=== PATIENT | male | born 1955 | race African-American/Black ===

== ENCOUNTER 2019-03-22 23:49 | Inpatient (IN) | payer OTHER ==
[~2019-03-22] VITALS: Ht 162.6 cm; Wt 70.8 kg
[2019-03-23] MEDS ORDERED: SODIUM CHLORIDE 0.9% 1000ML BAG (SEPSIS BOLUS) IV ONE ×2 (05:30→06:15)
[2019-03-23 05:53] LABS: HEMATOCRIT. 42.9 % (42.0-52.0); HEMOGLOBIN. 14.3 g/dL (14.0-18.0); MEAN CORPUSCULAR HEMOGLOBIN 30.9 pg (28.0-32.0); MEAN CORPUSCULAR VOLUME 92.5 fL (80.0-94.0); MEAN PLATELET VOLUME 9.2 fl (7.4-10.4); PLATELET 90 x1000/uL (130-400); RED BLOOD CELL COUNT 4.64 mill/uL (4.7-6.1)
[2019-03-23 06:01] LABS: CHLORIDE 104 mEq/L (98-107)
[2019-03-23 06:07] LABS: INR 1.1; PROTHROMBIN TIME 10.8 sec (9.6-11.0)
[2019-03-23] MEDS ORDERED: ACETAMINOPHEN 325MG TABLET PO STA (06:14)
[2019-03-23] MEDS ORDERED: DEXTROSE 50% WATER 50ML SYRINGE IV ONE (06:30)
[2019-03-23 07:22] LABS: PLATELET ESTIMATE DECREASED
[2019-03-23] MEDS ORDERED: LEVOFLOXACIN 750MG PREMIX 150 ML IV ONE (07:45)
[2019-03-23] MEDS ORDERED: KETOROLAC 30MG/ML VIAL IV ONE (07:45)
[2019-03-23] MEDS ORDERED: CLINDAMYCIN 600 MG in DEXTROSE 5% WATER 50 ML IV ONE (07:45)
[2019-03-23] MEDS ORDERED: IPRATROPIUM/ALBUTEROL 0.5-3(2.5)MG/3ML NEB NEB PRN (10:15)
[2019-03-23] MEDS ORDERED: TRAMADOL 50MG TABLET PO PRN (10:15)
[2019-03-23] MEDS ORDERED: DOCUSATE SODIUM 100MG CAPSULE PO PRN (10:15)
[2019-03-23] MEDS ORDERED: LORAZEPAM 0.5MG TABLET PO PRN (10:15)
[2019-03-23] MEDS ORDERED: ONDANSETRON HCL 4MG/2ML INJ IV PRN (10:15)
[2019-03-23] MEDS ORDERED: POTASSIUM CHLORIDE 20MEQ TABLET SR PO NR (10:15)
[2019-03-23] MEDS ORDERED: CLONIDINE 0.1MG TABLET PO PRN (10:15)
[2019-03-23] MEDS ORDERED: MAGNESIUM/ALUMINUM HYDROXIDE/SIMETHICONE 30ML UDC PO PRN (10:15)
[2019-03-23] MEDS ORDERED: CEFAZOLIN 1000MG PREMIX 50 ML IV SCH (14:00)
[2019-03-23] MEDS: GUAIFENESIN 200MG/10ML SUGAR FREE UDC PO PRN (14:41)
[2019-03-23 18:18] LABS: CLARITY URINE TURBID (CLEAR); COLOR URINE DARK YELLOW (YELLOW); KETONES URINE TRACE (NEGATIVE); LEUKOCYTE ESTERASE URINE NEGATIVE (NEGATIVE); NITRITE URINE NEGATIVE (NEGATIVE); OCCULT BLOOD URINE NEGATIVE (NEGATIVE); PROTEIN URINE TRACE (NEGATIVE); SPECIFIC GRAVITY URINE 1.028 (1.005-1.030)
[2019-03-23 18:35] LABS: *AMPHETAMINES SCREEN URINE NEGATIVE (NEGATIVE); *BARBITURATES SCREEN URINE NEGATIVE (NEGATIVE); *BENZODIAZEPINES SCREEN URINE NEGATIVE (NEGATIVE); *COCAINE SCREEN URINE NEGATIVE (NEGATIVE); METHADONE URINE SCREEN NEGATIVE (NEGATIVE); OPIATES URINE SCREEN PRESUMTIVE POSITIVE (NEGATIVE)
[2019-03-23 18:36] LABS: CANNABINOID URINE SCREEN PRESUMTIVE POSITIVE (NEGATIVE); PHENCYCLIDINE URINE SCREEN NEGATIVE (NEGATIVE)
[2019-03-23 18:50] VITALS: BP 156/96
[2019-03-23 20:00] VITALS: BP 169/78
[2019-03-23] MEDS: ACETAMINOPHEN 325MG TABLET PO PRN (20:11)
[2019-03-23] MEDS: FUROSEMIDE 40MG/4ML VIAL IVP SCH (20:30)
[2019-03-23] MEDS: SPIRONOLACTONE 25MG TABLET PO SCH (20:30)
[2019-03-23] MEDS: ASCORBIC ACID 500 MG TABLET PO SCH (20:30)
[2019-03-23] MEDS: ENOXAPARIN 40MG/0.4ML SYR SUBCUT SCH (20:37)
[2019-03-23] MEDS: IPRATROPIUM/ALBUTEROL 0.5-3(2.5)MG/3ML NEB HHN SCH (20:53)
[2019-03-23] MEDS ORDERED: MAGNESIUM 2 G PREMIX 50 ML IV NR (21:00)
[2019-03-23 21:31] LABS: CREATINE KINASE MB FRACTION 3.8 ng/mL (0.5-3.6)
[2019-03-23 22:00] VITALS: BP 158/74
[2019-03-24] VITALS (11 sets, daily range): BP systolic 109–166; BP diastolic 64–87
[2019-03-24] MEDS: IPRATROPIUM/ALBUTEROL 0.5-3(2.5)MG/3ML NEB HHN SCH ×6 (00:26→20:59)
[2019-03-24] MEDS: ACETAMINOPHEN 325MG TABLET PO PRN ×2 (00:32→09:23)
[2019-03-24] MEDS ORDERED: HYDR10SY15 PO (03:42)
[2019-03-24] MEDS ORDERED: AMIO100T4 PO (03:42)
[2019-03-24] MEDS ORDERED: ASPI-1393 PO (03:42)
[2019-03-24] MEDS ORDERED: SACU1TAB MT (03:42)
[2019-03-24] MEDS ORDERED: ETOD400T2 MT (03:42)
[2019-03-24] MEDS ORDERED: ATOR-2 PO (03:42)
[2019-03-24] MEDS ORDERED: MINE50OI TP (03:42)
[2019-03-24] MEDS ORDERED: CARV25TA47 MT (03:42)
[2019-03-24] MEDS: ZOLPIDEM TARTRATE 5MG TABLET PO PRN (05:20)
[2019-03-24] MEDS: FUROSEMIDE 40MG/4ML VIAL IVP SCH ×2 (05:39→18:13)
[2019-03-24] MEDS ORDERED: CLINDAMYCIN 900 MG in DEXTROSE 5% WATER 50 ML IV SCH (08:30)
[2019-03-24] MEDS ORDERED: CEFTRIAXONE 1 G PREMIX 50 ML IV SCH (09:00)
[2019-03-24] MEDS ORDERED: LEVOFLOXACIN 250MG PREMIX 50 ML IV SCH (09:00)
[2019-03-24] MEDS: FAMOTIDINE 20MG TABLET PO SCH (09:21)
[2019-03-24] MEDS: DILTIAZEM HCL 60MG TABLET PO SCH ×3 (09:21→22:52)
[2019-03-24] MEDS: SPIRONOLACTONE 25MG TABLET PO SCH ×2 (09:21→21:58)
[2019-03-24] MEDS: ASCORBIC ACID 500 MG TABLET PO SCH ×2 (09:21→21:58)
[2019-03-24] MEDS: AMLODIPINE 10MG TABLET PO SCH (09:22)
[2019-03-24] MEDS: ZINC SULFATE 220 MG ( 50 ) CAPSULE PO SCH (09:23)
[2019-03-24] MEDS ORDERED: CLINDAMYCIN 900 MG PREMIX 50 ML IV SCH ×2 (10:00→15:30)
[2019-03-24 11:07] LABS: HEMATOCRIT. 41.8 % (42.0-52.0); MEAN CORPUSCULAR HEMOGLOBIN 31.3 pg (28.0-32.0); MEAN CORPUSCULAR VOLUME 93.4 fL (80.0-94.0); MEAN PLATELET VOLUME 9.5 fl (7.4-10.4); PLATELET 103 x1000/uL (130-400); RED BLOOD CELL COUNT 4.48 mill/uL (4.7-6.1); RED CELL DISTRIBUTION WIDTH 14.2 % (11.6-14.6)
[2019-03-24 11:10] LABS: CHLORIDE 107 mEq/L (98-107)
[2019-03-24 11:26] LABS: CREATINE KINASE 265 IU/L (39-308)
[2019-03-24 11:28] LABS: CREATINE KINASE MB FRACTION 1.9 ng/mL (0.5-3.6)
[2019-03-24] MEDS ORDERED: DIPHENHYDRAMINE 50MG CAPSULE PO PRN (15:30)
[2019-03-24 17:00] LABS: PLATELET ESTIMATE DECREASED
[2019-03-24] MEDS: METHYLPREDNISOLONE SOD SUCC 125 MG/2 ML VIAL IV SCH (18:13)
[2019-03-24] MEDS: CLINDAMYCIN 900 MG in DEXTROSE 5% WATER 50 ML IV SCH (18:22)
[2019-03-24] MEDS: ENOXAPARIN 40MG/0.4ML SYR SUBCUT SCH (21:00)
[2019-03-25] VITALS (12 sets, daily range): BP systolic 103–141; BP diastolic 57–83
[2019-03-25] MEDS: ZOLPIDEM TARTRATE 5MG TABLET PO PRN ×2 (01:38→22:28)
[2019-03-25] MEDS: METHYLPREDNISOLONE SOD SUCC 125 MG/2 ML VIAL IV SCH ×3 (01:38→22:05)
[2019-03-25] MEDS: CLINDAMYCIN 900 MG in DEXTROSE 5% WATER 50 ML IV SCH ×3 (01:39→17:55)
[2019-03-25] MEDS: IPRATROPIUM/ALBUTEROL 0.5-3(2.5)MG/3ML NEB HHN SCH ×5 (01:40→21:20)
[2019-03-25] MEDS: DILTIAZEM HCL 60MG TABLET PO SCH ×3 (06:00→22:06)
[2019-03-25] MEDS: FUROSEMIDE 40MG/4ML VIAL IVP SCH ×2 (06:14→17:55)
[2019-03-25 07:25] LABS: CHLORIDE 104 mEq/L (98-107)
[2019-03-25 07:33] LABS: PHOSPHORUS 4.3 mg/dL (2.5-4.9)
[2019-03-25] MEDS: SPIRONOLACTONE 25MG TABLET PO SCH ×2 (08:40→22:05)
[2019-03-25] MEDS: ASCORBIC ACID 500 MG TABLET PO SCH ×2 (08:40→22:05)
[2019-03-25] MEDS: ZINC SULFATE 220 MG ( 50 ) CAPSULE PO SCH (08:40)
[2019-03-25] MEDS: FAMOTIDINE 20MG TABLET PO SCH (08:40)
[2019-03-25] MEDS: AMLODIPINE 10MG TABLET PO SCH (08:41)
[2019-03-25 08:47] LABS: BASOPHILS % 0.1 % (0.0-2.0); HEMATOCRIT. 37.9 % (42.0-52.0); LYMPHOCYTES % 12.5 % (20.0-50.0); MEAN CORPUSCULAR HEMOGLOBIN 31.4 pg (28.0-32.0); MEAN CORPUSCULAR VOLUME 91.5 fL (80.0-94.0); MEAN PLATELET VOLUME 9.5 fl (7.4-10.4); MONOCYTES % 1.2 % (2.0-8.0); NEUTROPHILS % 86.2 % (40.0-76.0); PLATELET 102 x1000/uL (130-400); RED BLOOD CELL COUNT 4.14 mill/uL (4.7-6.1); RED CELL DISTRIBUTION WIDTH 14.4 % (11.6-14.6)
[2019-03-25] MEDS ORDERED: LEVOFLOXACIN 250MG PREMIX 50 ML IV SCH (11:00)
[2019-03-25] MEDS: GUAIFENESIN 200MG/10ML SUGAR FREE UDC PO PRN (12:39)
[2019-03-25] MEDS: ENOXAPARIN 40MG/0.4ML SYR SUBCUT SCH (22:05)
[2019-03-26] VITALS (9 sets, daily range): BP systolic 116–157; BP diastolic 66–87
[2019-03-26] MEDS: IPRATROPIUM/ALBUTEROL 0.5-3(2.5)MG/3ML NEB HHN SCH ×4 (00:52→21:25)
[2019-03-26] MEDS: CLINDAMYCIN 900 MG in DEXTROSE 5% WATER 50 ML IV SCH ×3 (01:14→18:13)
[2019-03-26] MEDS: FUROSEMIDE 40MG/4ML VIAL IVP SCH (06:19)
[2019-03-26] MEDS: DILTIAZEM HCL 60MG TABLET PO SCH ×3 (06:20→22:15)
[2019-03-26 06:51] LABS: HEMATOCRIT. 34.9 % (42.0-52.0); HEMOGLOBIN. 11.9 g/dL (14.0-18.0); MEAN PLATELET VOLUME 9.5 fl (7.4-10.4); PLATELET 102 x1000/uL (130-400); RED BLOOD CELL COUNT 3.83 mill/uL (4.7-6.1); RED CELL DISTRIBUTION WIDTH 14.2 % (11.6-14.6)
[2019-03-26 06:58] LABS: PHOSPHORUS 3.4 mg/dL (2.5-4.9)
[2019-03-26] MEDS: FAMOTIDINE 20MG TABLET PO SCH (08:37)
[2019-03-26] MEDS: ZINC SULFATE 220 MG ( 50 ) CAPSULE PO SCH (08:37)
[2019-03-26] MEDS: AMLODIPINE 10MG TABLET PO SCH (08:37)
[2019-03-26] MEDS: METHYLPREDNISOLONE SOD SUCC 125 MG/2 ML VIAL IV SCH (08:37)
[2019-03-26] MEDS: ASCORBIC ACID 500 MG TABLET PO SCH ×2 (08:38→20:52)
[2019-03-26 10:15] LABS: PLATELET ESTIMATE DECREASED
[2019-03-26] MEDS: METHYLPREDNISOLONE SOD SUCC 40 MG/ML VIAL IV SCH (20:51)
[2019-03-26] MEDS: ENOXAPARIN 40MG/0.4ML SYR SUBCUT SCH (20:53)
[2019-03-26] MEDS: ZOLPIDEM TARTRATE 5MG TABLET PO PRN (22:15)
[2019-03-27] VITALS: BP 125/72
[2019-03-27] MEDS: IPRATROPIUM/ALBUTEROL 0.5-3(2.5)MG/3ML NEB HHN SCH ×3 (01:25→08:45)
[2019-03-27] MEDS: CLINDAMYCIN 900 MG in DEXTROSE 5% WATER 50 ML IV SCH ×2 (02:04→09:58)
[2019-03-27 04:00] VITALS: BP 112/69
[2019-03-27] MEDS: DILTIAZEM HCL 60MG TABLET PO SCH ×2 (05:55→14:28)
[2019-03-27 07:15] LABS: HEMATOCRIT. 32.7 % (42.0-52.0); MEAN CORPUSCULAR HEMOGLOBIN 30.8 pg (28.0-32.0); MEAN CORPUSCULAR VOLUME 91.5 fL (80.0-94.0); MEAN PLATELET VOLUME 9.6 fl (7.4-10.4); PLATELET 112 x1000/uL (130-400); RED BLOOD CELL COUNT 3.58 mill/uL (4.7-6.1); RED CELL DISTRIBUTION WIDTH 14.6 % (11.6-14.6)
[2019-03-27] MEDS: GUAIFENESIN 200MG/10ML SUGAR FREE UDC PO PRN (07:16)
[2019-03-27 07:45] LABS: PHOSPHORUS 2.9 mg/dL (2.5-4.9)
[2019-03-27 08:00] VITALS: BP 126/75
[2019-03-27] MEDS: METHYLPREDNISOLONE SOD SUCC 40 MG/ML VIAL IV SCH (09:15)
[2019-03-27] MEDS: FAMOTIDINE 20MG TABLET PO SCH (09:16)
[2019-03-27] MEDS: ASCORBIC ACID 500 MG TABLET PO SCH (09:16)
[2019-03-27] MEDS: AMLODIPINE 10MG TABLET PO SCH (09:16)
[2019-03-27] MEDS: ZINC SULFATE 220 MG ( 50 ) CAPSULE PO SCH (09:16)
[2019-03-27 10:02] LABS: PLATELET ESTIMATE SLIGHTLY DECREASED
[2019-03-27] MEDS ORDERED: FURO-152 PO (11:34)
[2019-03-27 11:40] VITALS: BP 125/48
[2019-03-27 12:10] VITALS: BP 130/60
== END 2019-03-27 16:10 | disposition home or self-care (01) | DRG 871 ==
LOC: ER 23:49 → 3WST 03-23 08:17 → EDBEDREQ 03-23 08:22 → EDBEDREQTM 03-23 08:24 → SUPCPDRO 03-23 10:08 → ENRESERV 03-23 17:00 → 6WST 03-26 15:50
PROVIDERS: ADMIT Internal Medicine; ATTEND Internal Medicine
PROC: 02HV33Z Insertion of Infusion Device into Superior Vena Cava, Percutaneous Approach (ICD-10-PCS; principal; 2019-03-24)
PROC: B548ZZA Ultrasonography of Superior Vena Cava, Guidance (ICD-10-PCS; 2019-03-24)
PROC: B5181ZA Fluoroscopy of Superior Vena Cava using Low Osmolar Contrast, Guidance (ICD-10-PCS; 2019-03-24)
DX: A41.9 Sepsis, unspecified organism (principal); N17.0 Acute kidney failure with tubular necrosis; I21.4 Non-ST elevation (NSTEMI) myocardial infarction; E44.0 Moderate protein-calorie malnutrition; I50.40 Unspecified combined systolic (congestive) and diastolic (congestive) heart failure; J44.1 Chronic obstructive pulmonary disease with (acute) exacerbation; L03.114 Cellulitis of left upper limb; R65.20 Severe sepsis without septic shock; I11.0 Hypertensive heart disease with heart failure; I25.10 Atherosclerotic heart disease of native coronary artery without angina pectoris; L30.9 Dermatitis, unspecified; E87.6 Hypokalemia; E83.42 Hypomagnesemia; F12.10 Cannabis abuse, uncomplicated; D69.6 Thrombocytopenia, unspecified; E16.2 Hypoglycemia, unspecified; Z96.641 Presence of right artificial hip joint; E78.00 Pure hypercholesterolemia, unspecified; E78.5 Hyperlipidemia, unspecified; K52.9 Noninfective gastroenteritis and colitis, unspecified; Z95.810 Presence of automatic (implantable) cardiac defibrillator; Z82.49 Family history of ischemic heart disease and other diseases of the circulatory system; Z86.73 Personal history of transient ischemic attack (TIA), and cerebral infarction without residual deficits; Z95.5 Presence of coronary angioplasty implant and graft; Z88.6 Allergy status to analgesic agent; Z88.1 Allergy status to other antibiotic agents; Z88.0 Allergy status to penicillin; Z88.2 Allergy status to sulfonamides; Z68.26 Body mass index [BMI] 26.0-26.9, adult
CPT/HCPCS: 36415; 36573; 71045; 73200; 76770; 76937; 80048; 80061; 80305; 81003; 82550; 82553; 82962; 83036; 83605; 83735; 83880; 84100; 84145; 84484; 85651; 86038; 86140; 87804; 93005; 93306; 93970; 96365; 96367; 96375; 97116; 97162; 97165; 99291; C1725; C1769; J1650; J1885; J1940; J1956; J2920; J2930; J3475; J3490; J7030; J7060; J7620

== ENCOUNTER 2019-05-07 15:35 | Emergency (ER) | payer OTHER ==
[~2019-05-07] VITALS: Ht 177.8 cm; Wt 88.0 kg
[~2019-05-07 15:35] MED LIST: AMIO100T4 PO; ASPI-1497 PO; ATOR-2 PO; CARV25TA47 MT; ETOD400T2 MT; FURO-152 PO; HYDR10SY15 PO; MINE50OI TP; SACU1TAB MT
[2019-05-07] MEDS ORDERED: ALBUTEROL (0.083%) 2.5MG/3ML NEB HHN STA (16:26)
[2019-05-07] MEDS ORDERED: METHYLPREDNISOLONE SOD SUCC 125 MG/2 ML VIAL IV STA (16:26)
[2019-05-07] MEDS ORDERED: IPRATROPIUM BROMIDE (0.02%) 0.5MG/2.5ML NEB HHN STA (16:26)
[2019-05-07] MEDS ORDERED: FAMOTIDINE 20MG/2ML VIAL IV ONE (16:30)
[2019-05-07] MEDS ORDERED: DIPHENHYDRAMINE 50MG/ML VIAL IV ONE (16:45)
[2019-05-07] MEDS ORDERED: DIPHENHYDRAMINE 25MG CAPSULE PO ONE (16:45)
[2019-05-07] MEDS ORDERED: SODIUM CHLORIDE 0.9% 500 ML IV ONE (16:45)
[2019-05-07 17:28] LABS: HEMOGLOBIN. 14.7 g/dL (14.0-18.0); MEAN CORPUSCULAR HEMOGLOBIN 31.3 pg (28.0-32.0); MEAN CORPUSCULAR VOLUME 95.9 fL (80.0-94.0); MEAN PLATELET VOLUME 9.7 fl (7.4-10.4); PLATELET 97 x1000/uL (130-400); RED CELL DISTRIBUTION WIDTH 16.2 % (11.6-14.6)
[2019-05-07 17:31] LABS: CHLORIDE 107 mEq/L (98-107)
[2019-05-07 18:06] LABS: PLATELET ESTIMATE DECREASED
[2019-05-07 18:44] LABS: CLARITY URINE CLEAR (CLEAR); COLOR URINE YELLOW (YELLOW); KETONES URINE NEGATIVE (NEGATIVE); LEUKOCYTE ESTERASE URINE NEGATIVE (NEGATIVE); NITRITE URINE NEGATIVE (NEGATIVE); OCCULT BLOOD URINE NEGATIVE (NEGATIVE); PH URINE 8.5 (4.5-8.0); PROTEIN URINE NEGATIVE (NEGATIVE)
[2019-05-07 19:52] VITALS: BP 148/88
== END 2019-05-07 20:25 | disposition home or self-care (01) ==
LOC: ER 15:35
DX: T78.40XA Allergy, unspecified, initial encounter (principal); X58.XXXA Exposure to other specified factors, initial encounter; I10 Essential (primary) hypertension; E78.00 Pure hypercholesterolemia, unspecified; Z88.0 Allergy status to penicillin; Z88.2 Allergy status to sulfonamides; Z88.3 Allergy status to other anti-infective agents; Z95.1 Presence of aortocoronary bypass graft; Z88.6 Allergy status to analgesic agent; Z95.0 Presence of cardiac pacemaker; Z79.82 Long term (current) use of aspirin; Z86.73 Personal history of transient ischemic attack (TIA), and cerebral infarction without residual deficits
CPT/HCPCS: 36415; 71045; 80053; 81003; 83690; 83880; 84484; 85025; 85610; 93005; 96374; 96375; 99284; J1200; J2930; J3490; J7040; J7611; Q0163

== ENCOUNTER 2019-07-26 15:29 | Inpatient (IN) | payer OTHER ==
[~2019-07-26] VITALS: Ht 162.6 cm; Wt 73.0 kg
[2019-07-26] MEDS ORDERED: ACETAMINOPHEN 325MG TABLET PO STA (15:57)
[2019-07-26] MEDS ORDERED: CLINDAMYCIN 600 MG in DEXTROSE 5% WATER 50 ML IV ONE (16:15)
[2019-07-26 18:08] LABS: CLARITY URINE CLEAR (CLEAR); COLOR URINE YELLOW (YELLOW); KETONES URINE TRACE (NEGATIVE); LEUKOCYTE ESTERASE URINE 1+ (NEGATIVE); NITRITE URINE NEGATIVE (NEGATIVE); OCCULT BLOOD URINE NEGATIVE (NEGATIVE); PH URINE 5.5 (4.5-8.0); PROTEIN URINE TRACE (NEGATIVE); SPECIFIC GRAVITY URINE 1.025 (1.005-1.030)
[2019-07-26 19:13] LABS: CHLORIDE 107 mEq/L (98-107)
[2019-07-26] MEDS ORDERED: SODIUM CHLORIDE 0.9% 1,000 ML IV ONE ×2 (20:15)
[2019-07-26] MEDS ORDERED: SODIUM CHLORIDE 0.9% 100 ML IV ONE (20:15)
[2019-07-26] MEDS ORDERED: IPRATROPIUM/ALBUTEROL 0.5-3(2.5)MG/3ML NEB NEB PRN (20:45)
[2019-07-26] MEDS ORDERED: DOCUSATE SODIUM 100MG CAPSULE PO PRN (20:45)
[2019-07-26] MEDS ORDERED: ONDANSETRON HCL 4MG/2ML INJ IV PRN (20:45)
[2019-07-26] MEDS ORDERED: ACETAMINOPHEN 325MG TABLET PO PRN ×2 (20:45)
[2019-07-26] MEDS ORDERED: NITROGLYCERIN 0.4MG TABLET SL SL PRN (20:45)
[2019-07-26] MEDS ORDERED: GUAIFENESIN 200MG/10ML SUGAR FREE UDC PO PRN (20:45)
[2019-07-26] MEDS ORDERED: ZOLPIDEM TARTRATE 5MG TABLET PO PRN (20:45)
[2019-07-26] MEDS ORDERED: MAGNESIUM/ALUMINUM HYDROXIDE/SIMETHICONE 30ML UDC PO PRN (20:45)
[2019-07-26] MEDS ORDERED: CLONIDINE 0.1MG TABLET PO PRN (20:45)
[2019-07-26] MEDS ORDERED: KETOROLAC 15MG/ML VIAL IV PRN (20:45)
[2019-07-26 21:28] LABS: LDL CHOLESTEROL 128 mg/dL (5-100)
[2019-07-26 21:31] LABS: HDL CHOLESTEROL 62 mg/dL (40-59)
[2019-07-26] MEDS ORDERED: ASPIRIN 325MG TABLET PO SCH (22:00)
[2019-07-26] MEDS ORDERED: FUROSEMIDE 40MG/4ML VIAL IVP NR (22:23)
[2019-07-26] MEDS ORDERED: LEVOFLOXACIN 500MG PREMIX 100 ML IV NR (22:24)
[2019-07-26 23:43] LABS: HEMATOCRIT. 40.1 % (42.0-52.0); HEMOGLOBIN. 13.3 g/dL (14.0-18.0); MEAN CORPUSCULAR HEMOGLOBIN 31.9 pg (28.0-32.0); MEAN CORPUSCULAR VOLUME 96.2 fL (80.0-94.0); MEAN PLATELET VOLUME 8.4 fl (7.4-10.4); PLATELET 89 x1000/uL (130-400); RED BLOOD CELL COUNT 4.17 mill/uL (4.7-6.1); RED CELL DISTRIBUTION WIDTH 15.1 % (11.6-14.6)
[2019-07-26 23:48] LABS: PROTHROMBIN TIME 10.8 sec (9.6-11.0)
[2019-07-26 23:54] LABS: CREATINE KINASE MB FRACTION 1.8 ng/mL (0.5-3.6)
[2019-07-27 00:03] LABS: PLATELET ESTIMATE SLIGHTLY DECREASED
[2019-07-27 01:00] VITALS: BP 127/89
[2019-07-27] MEDS: CLINDAMYCIN 600MG PREMIX 50 ML IV SCH ×3 (02:51→22:00)
[2019-07-27 04:00] VITALS: BP 150/80
[2019-07-27] MEDS: CARVEDILOL 3.125 MG TABLET PO SCH ×2 (06:28→17:52)
[2019-07-27] MEDS ORDERED: FAMOTIDINE 20MG TABLET PO SCH (09:00)
[2019-07-27] MEDS: FUROSEMIDE 40MG/4ML VIAL IVP SCH ×3 (09:00→21:00)
[2019-07-27 11:15] LABS: *AMPHETAMINES SCREEN URINE NEGATIVE (NEGATIVE); *BARBITURATES SCREEN URINE NEGATIVE (NEGATIVE); *BENZODIAZEPINES SCREEN URINE NEGATIVE (NEGATIVE); *COCAINE SCREEN URINE NEGATIVE (NEGATIVE)
[2019-07-27 11:16] LABS: CANNABINOID URINE SCREEN PRESUMTIVE POSITIVE (NEGATIVE); METHADONE URINE SCREEN NEGATIVE (NEGATIVE); OPIATES URINE SCREEN NEGATIVE (NEGATIVE); PHENCYCLIDINE URINE SCREEN NEGATIVE (NEGATIVE)
[2019-07-27] MEDS: FAMOTIDINE 20MG TABLET PO SCH (11:25)
[2019-07-27] MEDS: ASCORBIC ACID 500 MG TABLET PO SCH ×2 (11:25→22:15)
[2019-07-27] MEDS: ASPIRIN 325MG EC TABLET PO SCH (11:25)
[2019-07-27] MEDS: SPIRONOLACTONE 25MG TABLET PO SCH ×2 (11:26→22:15)
[2019-07-27] MEDS: ZINC SULFATE 220 MG ( 50 ) CAPSULE PO SCH (11:26)
[2019-07-27] MEDS: LOSARTAN POTASSIUM 50 MG TABLET PO SCH (11:35)
[2019-07-27] MEDS: ENOXAPARIN 40MG/0.4ML SYR SUBCUT SCH (11:36)
[2019-07-27 16:00] VITALS: BP 146/91
[2019-07-27 20:00] VITALS: BP 128/68
[2019-07-27] MEDS ORDERED: LEVOFLOXACIN 500MG PREMIX 100 ML IV SCH (21:00)
[2019-07-27] MEDS: ATORVASTATIN CALCIUM 40MG TABLET PO SCH (22:15)
[2019-07-27] MEDS: LEVOFLOXACIN 250MG PREMIX 50 ML IV SCH (23:00)
[2019-07-28] VITALS: BP_SYST 128; BP_DIAS 68; BP_DIAS 76
[2019-07-28 04:00] VITALS: BP_SYST 111; BP_SYST 128; BP_DIAS 69; BP_DIAS 76
[2019-07-28] MEDS: CLINDAMYCIN 600MG PREMIX 50 ML IV SCH ×3 (05:44→22:00)
[2019-07-28] MEDS: CARVEDILOL 3.125 MG TABLET PO SCH ×2 (05:44→17:03)
[2019-07-28 08:00] VITALS: BP 113/76
[2019-07-28] MEDS: ASPIRIN 325MG EC TABLET PO SCH (08:38)
[2019-07-28] MEDS: FUROSEMIDE 40MG/4ML VIAL IVP SCH ×2 (08:38→21:55)
[2019-07-28] MEDS: ENOXAPARIN 40MG/0.4ML SYR SUBCUT SCH (08:39)
[2019-07-28] MEDS: ZINC SULFATE 220 MG ( 50 ) CAPSULE PO SCH (08:39)
[2019-07-28] MEDS: ASCORBIC ACID 500 MG TABLET PO SCH ×2 (08:39→21:54)
[2019-07-28] MEDS: FAMOTIDINE 20MG TABLET PO SCH (08:39)
[2019-07-28] MEDS: LOSARTAN POTASSIUM 50 MG TABLET PO SCH (08:39)
[2019-07-28] MEDS: SPIRONOLACTONE 25MG TABLET PO SCH ×2 (08:39→22:16)
[2019-07-28] MEDS ORDERED: LIDOCAINE HCL 1% 20ML VIAL (Pyxis) INJ ONE (09:52)
[2019-07-28 12:00] VITALS: BP 148/126
[2019-07-28 16:00] VITALS: BP 142/85
[2019-07-28 16:09] LABS: HEMATOCRIT. 39.3 % (42.0-52.0); HEMOGLOBIN. 13.3 g/dL (14.0-18.0); MEAN CORPUSCULAR HEMOGLOBIN 31.8 pg (28.0-32.0); MEAN CORPUSCULAR VOLUME 94.3 fL (80.0-94.0); MEAN PLATELET VOLUME 8.8 fl (7.4-10.4); PLATELET 101 x1000/uL (130-400); RED BLOOD CELL COUNT 4.17 mill/uL (4.7-6.1)
[2019-07-28 16:16] LABS: CHLORIDE 108 mEq/L (98-107)
[2019-07-28 19:19] LABS: PLATELET ESTIMATE DECREASED
[2019-07-28 20:00] VITALS: BP 138/78
[2019-07-28] MEDS: ATORVASTATIN CALCIUM 40MG TABLET PO SCH (21:54)
[2019-07-28] MEDS: ZOLPIDEM TARTRATE 5MG TABLET PO PRN (21:54)
[2019-07-28] MEDS: LEVOFLOXACIN 250MG PREMIX 50 ML IV SCH (23:01)
[2019-07-29] VITALS: BP 112/85
[2019-07-29 04:00] VITALS: BP 137/80
[2019-07-29] MEDS: CARVEDILOL 3.125 MG TABLET PO SCH ×2 (05:16→17:45)
[2019-07-29] MEDS: CLINDAMYCIN 600MG PREMIX 50 ML IV SCH ×3 (05:17→21:58)
[2019-07-29 06:20] LABS: HEMATOCRIT. 39.1 % (42.0-52.0); HEMOGLOBIN. 13.3 g/dL (14.0-18.0); MEAN CORPUSCULAR VOLUME 93.9 fL (80.0-94.0); MEAN PLATELET VOLUME 9.4 fl (7.4-10.4); PLATELET 99 x1000/uL (130-400); RED BLOOD CELL COUNT 4.16 mill/uL (4.7-6.1); RED CELL DISTRIBUTION WIDTH 15.1 % (11.6-14.6)
[2019-07-29 08:00] VITALS: BP 124/71
[2019-07-29] MEDS: ENOXAPARIN 40MG/0.4ML SYR SUBCUT SCH (09:00)
[2019-07-29] MEDS: FUROSEMIDE 40MG/4ML VIAL IVP SCH ×2 (09:09→21:58)
[2019-07-29] MEDS: ASPIRIN 325MG EC TABLET PO SCH (09:09)
[2019-07-29] MEDS: FAMOTIDINE 20MG TABLET PO SCH (09:09)
[2019-07-29] MEDS: ASCORBIC ACID 500 MG TABLET PO SCH ×2 (09:09→21:58)
[2019-07-29] MEDS: ZINC SULFATE 220 MG ( 50 ) CAPSULE PO SCH (09:09)
[2019-07-29] MEDS: LOSARTAN POTASSIUM 50 MG TABLET PO SCH (09:10)
[2019-07-29] MEDS: SPIRONOLACTONE 25MG TABLET PO SCH ×2 (09:10→21:58)
[2019-07-29 12:00] VITALS: BP 127/73
[2019-07-29 13:51] LABS: PLATELET ESTIMATE DECREASED
[2019-07-29 16:00] VITALS: BP 139/81
[2019-07-29] MEDS: TACROLIMUS 0.1% XX SCH (17:46)
[2019-07-29] MEDS: DESOXIMETASONE 0.25% XX SCH (17:46)
[2019-07-29 20:00] VITALS: BP 147/83
[2019-07-29] MEDS: ATORVASTATIN CALCIUM 40MG TABLET PO SCH (21:58)
[2019-07-29] MEDS: ZOLPIDEM TARTRATE 5MG TABLET PO PRN (21:58)
[2019-07-29] MEDS: LEVOFLOXACIN 250MG PREMIX 50 ML IV SCH (22:04)
[2019-07-30] VITALS: BP 159/85
[2019-07-30 04:00] VITALS: BP 142/89
[2019-07-30] MEDS: CARVEDILOL 3.125 MG TABLET PO SCH ×2 (05:37→18:05)
[2019-07-30] MEDS: CLINDAMYCIN 600MG PREMIX 50 ML IV SCH ×4 (05:38→22:00)
[2019-07-30 08:00] VITALS: BP 152/95
[2019-07-30] MEDS: LOSARTAN POTASSIUM 50 MG TABLET PO SCH (09:37)
[2019-07-30] MEDS: ENOXAPARIN 40MG/0.4ML SYR SUBCUT SCH (09:37)
[2019-07-30] MEDS: ASCORBIC ACID 500 MG TABLET PO SCH ×2 (09:37→21:30)
[2019-07-30] MEDS: ASPIRIN 325MG EC TABLET PO SCH (09:37)
[2019-07-30] MEDS: FUROSEMIDE 40MG/4ML VIAL IVP SCH ×3 (09:38→21:30)
[2019-07-30] MEDS: SPIRONOLACTONE 25MG TABLET PO SCH ×2 (09:38→21:30)
[2019-07-30] MEDS: ZINC SULFATE 220 MG ( 50 ) CAPSULE PO SCH (09:38)
[2019-07-30] MEDS: FAMOTIDINE 20MG TABLET PO SCH (09:38)
[2019-07-30] MEDS: DESOXIMETASONE 0.25% XX SCH ×2 (09:44→18:06)
[2019-07-30] MEDS: TACROLIMUS 0.1% XX SCH ×2 (09:44→18:07)
[2019-07-30 12:00] VITALS: BP 142/90
[2019-07-30 16:00] VITALS: BP 147/89
[2019-07-30] MEDS: ZOLPIDEM TARTRATE 5MG TABLET PO PRN (18:05)
[2019-07-30 20:00] VITALS: BP 147/96
[2019-07-30] MEDS: ATORVASTATIN CALCIUM 40MG TABLET PO SCH (21:30)
[2019-07-30] MEDS: LEVOFLOXACIN 250MG PREMIX 50 ML IV SCH (22:46)
[2019-07-31] VITALS: BP 137/77
[2019-07-31 04:00] VITALS: BP 130/90
[2019-07-31] MEDS: CARVEDILOL 3.125 MG TABLET PO SCH (05:03)
[2019-07-31] MEDS: CLINDAMYCIN 600MG PREMIX 50 ML IV SCH (05:23)
[2019-07-31 08:00] VITALS: BP 138/80
[2019-07-31] MEDS: FUROSEMIDE 40MG/4ML VIAL IVP SCH (08:40)
[2019-07-31] MEDS: ZINC SULFATE 220 MG ( 50 ) CAPSULE PO SCH (08:41)
[2019-07-31] MEDS: ASCORBIC ACID 500 MG TABLET PO SCH (08:41)
[2019-07-31] MEDS: LOSARTAN POTASSIUM 50 MG TABLET PO SCH (08:41)
[2019-07-31] MEDS: SPIRONOLACTONE 25MG TABLET PO SCH (08:41)
[2019-07-31] MEDS: ASPIRIN 325MG EC TABLET PO SCH (08:41)
[2019-07-31] MEDS: TACROLIMUS 0.1% XX SCH (08:42)
[2019-07-31] MEDS: DESOXIMETASONE 0.25% XX SCH (08:42)
[2019-07-31] MEDS: ENOXAPARIN 40MG/0.4ML SYR SUBCUT SCH (08:42)
[2019-07-31] MEDS: FAMOTIDINE 20MG TABLET PO SCH (08:44)
[2019-07-31 09:41] VITALS: BP 138/80
== END 2019-07-31 10:45 | disposition home or self-care (01) | DRG 871 ==
LOC: ER 15:29 → EDBEDREQ 20:39 → ENRESERV 22:16 → 6WST 07-27 01:27
PROVIDERS: ADMIT Internal Medicine; ATTEND Internal Medicine
PROC: 05HD33Z Insertion of Infusion Device into Right Cephalic Vein, Percutaneous Approach (ICD-10-PCS; principal; 2019-07-28)
PROC: B51M1ZA Fluoroscopy of Right Upper Extremity Veins using Low Osmolar Contrast, Guidance (ICD-10-PCS; 2019-07-28)
DX: A41.9 Sepsis, unspecified organism (principal); I21.4 Non-ST elevation (NSTEMI) myocardial infarction; N17.0 Acute kidney failure with tubular necrosis; J96.00 Acute respiratory failure, unspecified whether with hypoxia or hypercapnia; E44.1 Mild protein-calorie malnutrition; I50.40 Unspecified combined systolic (congestive) and diastolic (congestive) heart failure; N39.0 Urinary tract infection, site not specified; L03.113 Cellulitis of right upper limb; I42.9 Cardiomyopathy, unspecified; I11.0 Hypertensive heart disease with heart failure; I25.2 Old myocardial infarction; Z86.73 Personal history of transient ischemic attack (TIA), and cerebral infarction without residual deficits; E78.00 Pure hypercholesterolemia, unspecified; L30.9 Dermatitis, unspecified; Z79.899 Other long term (current) drug therapy; Z95.0 Presence of cardiac pacemaker; Z95.1 Presence of aortocoronary bypass graft; Z91.012 Allergy to eggs; Z68.27 Body mass index [BMI] 27.0-27.9, adult
CPT/HCPCS: 36415; 36573; 71045; 76937; 80048; 80053; 80061; 80305; 81003; 82550; 82553; 83605; 83880; 84145; 84484; 85025; 87804; 93005; 93306; 93970; 93971; 96365; 99285; C1725; J1650; J1885; J1940; J1956; J3490; J7030; J7050; J7060